=== PATIENT | male | born 1965 | race Caucasian/White ===

== ENCOUNTER 2018-08-09 10:07 | Emergency (ER) | payer OTHER ==
[~2018-08-09] VITALS: Ht 170.2 cm; Wt 95.5 kg
[2018-08-09 14:10] LABS: APPEARANCE,URINE CLEAR (CLEAR); GLUCOSE, URINE (UA) NEGATIVE (NEGATIVE); KETONES,URINE TRACE mg/dL (NEGATIVE); LEUKOCYTE ESTERASE ,URINE NEGATIVE (NEGATIVE); NITRATE,URINE NEGATIVE (NEGATIVE); OCCULT BLOOD,URINE NEGATIVE (NEGATIVE); PH,URINE 5.5 (5.0-8.0); PROTEIN,URINE NEGATIVE (NEGATIVE)
[2018-08-09 14:11] LABS: BILIRUBIN,URINE PRELIM. POSITIVE (NEGATIVE)
[2018-08-09 14:20] LABS: BACTERIA,URINE None Seen /HPF (None Seen); SQUAMOUS EPITHELIAL CELL,UR Few /LPF (None Seen); WBC,URINE 0-2 /HPF (0-5)
[2018-08-09 14:22] VITALS: BP 130/81
== END 2018-08-09 14:56 | disposition home or self-care (01) ==
LOC: EMS 10:07
DX: R21 Rash and other nonspecific skin eruption (principal); F20.9 Schizophrenia, unspecified; R03.0 Elevated blood-pressure reading, without diagnosis of hypertension; Z59.0 Homelessness

== ENCOUNTER 2019-02-17 07:40 | Emergency (ER) | payer OTHER | END 2019-02-17 08:18 | disposition left against medical advice (07) | LOC: EMS 07:41 | DX: R51 Headache (principal); R50.9 Fever, unspecified; Z53.21 Procedure and treatment not carried out due to patient leaving prior to being seen by health care provider ==

== ENCOUNTER 2020-12-05 17:35 | Emergency (ER) | payer OTHER ==
[~2020-12-05] VITALS: Ht 165.1 cm; Wt 118.2 kg
[2020-12-05] MEDS ORDERED: ACETAMINOPHEN 325 MG TABLET PO ONE (18:00)
[2020-12-05 19:28] VITALS: BP 137/87
== END 2020-12-05 19:37 | disposition home or self-care (01) ==
LOC: EMS 17:35
DX: M79.675 Pain in left toe(s) (principal); F20.9 Schizophrenia, unspecified; Z59.0 Homelessness
CPT/HCPCS: 99283

== ENCOUNTER 2021-06-11 15:45 | Emergency (ER) | payer OTHER | END 2021-06-11 16:51 | disposition home or self-care (01) | LOC: EMS 15:45 | DX: Z00.00 Encounter for general adult medical examination without abnormal findings (principal); Z53.21 Procedure and treatment not carried out due to patient leaving prior to being seen by health care provider ==

== ENCOUNTER 2021-06-28 09:15 | Emergency (ER) | payer OTHER ==
[~2021-06-28] VITALS: Ht 172.7 cm; Wt 127.3 kg
[2021-06-28 10:13] VITALS: BP 134/95
[2021-06-28] MEDS ORDERED: ACETAMINOPHEN 500 MG TABLET PO ONE (10:15)
[2021-06-28] MEDS ORDERED: ACET-66 PO (11:25)
== END 2021-06-28 11:20 | disposition home or self-care (01) ==
LOC: EMS 09:20
DX: M17.11 Unilateral primary osteoarthritis, right knee (principal); F20.9 Schizophrenia, unspecified
CPT/HCPCS: 99283

== ENCOUNTER 2021-12-21 07:42 | Emergency (ER) | payer OTHER ==
[~2021-12-21] VITALS: Ht 167.6 cm; Wt 127.0 kg
[~2021-12-21 07:42] MED LIST: ACET-66 PO
[2021-12-21] MEDS ORDERED: OMEP10 PO (07:51)
[2021-12-21 08:07] VITALS: BP 150/86
[2021-12-21] MEDS ORDERED: TRIA15CR49 TP (08:10)
[2021-12-21] MEDS ORDERED: CLOBETASOL 0.05% 15 GM CREAM TP ONE (08:15)
== END 2021-12-21 08:24 | disposition home or self-care (01) ==
LOC: EMS 07:44
DX: L30.9 Dermatitis, unspecified (principal); F20.9 Schizophrenia, unspecified; Z59.00 Homelessness unspecified; Z86.19 Personal history of other infectious and parasitic diseases; Z87.19 Personal history of other diseases of the digestive system
CPT/HCPCS: 99283

== ENCOUNTER 2022-02-16 11:20 | Emergency (ER) | payer OTHER ==
[~2022-02-16 11:20] MED LIST changes: +OMEP10 PO; +TRIA15CR49 TP
== END 2022-02-16 11:41 | disposition left against medical advice (07) ==
LOC: EMS 11:21
DX: Z53.21 Procedure and treatment not carried out due to patient leaving prior to being seen by health care provider (principal)